=== PATIENT | male | born 1985 | race Hispanic/Latino ===

== ENCOUNTER 2016-10-25 21:33 | Emergency (ER) | payer BC ==
[2016-10-25 22:02] VITALS: TEMP 98.7; O2SAT 97
--- NOTE | 2016-10-25 22:03 | ED.PDOC ---
History of Present Illness - General Chief Complaint: Cardiovascular Problem Stated Complaint: chest discomfort Time Seen by Provider: 10/25/16 21:43 Source: patient, RN notes reviewed, Vital Signs reviewed Exam Limitations: no limitations - History of Present Illness Initial Comments: Patient presents to ER with c/o L upper chest pain for the past 3-4 days. It is a burning pain that causes tingling across his shoulder. The pain is causing him some anxiety and thus he came to get it checked out. No diaphoresis or nausea. + SOB but only when he starts to panic about the chest pain. He thinks the pain may be related to work. 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 Timing/Duration: days - 3-4 Severity/Quality: moderate, burning Location: other - L upper chest Chest Pain Radiation: shoulders - tingling across left shoulder Activities at Onset: activity - Work Prior Chest Pain/Cardiac Workup: no prior chest pain, no prior cardiac workup Improving Factors: rest Worsening Factors: movement Nitro Today/Relief: no nitro taken today Aspirin Treatment Today: no aspirin today Associated Symptoms: denies symptoms Allergies/Adverse Reactions: Allergies NO KNOWN ALLERGY Allergy (Verified 04/24/15 22:29) Home Medications: Ambulatory Orders Albuterol Inhaler [Proventil Hfa Inhaler] 2 puff INH Q4H #1 inh 04/24/15 Azithromycin [Zithromax Z-Gene] 1 ea PO DAILY #1 pack 04/24/15 predniSONE 60 mg PO DAILY #12 tab 04/24/15 Cyclobenzaprine HCl [Flexeril] 10 mg PO Q8HR PRN #15 tab 10/25/16 Review of Systems - Review of Systems Constitutional: States: no symptoms reported EENTM: States: no symptoms reported Respiratory: States: short of breath Cardiology: States: see HPI, chest pain Gastrointestinal/Abdominal: States: no symptoms reported Musculoskeletal: States: see HPI Skin: States: no symptoms reported Neurological: States: no symptoms reported All other Systems: No Change from Baseline Past Medical History (General) - Patient Medical History Hx Seizures: No Hx Stroke: No Hx Dementia: No Hx Asthma: No Hx of COPD: No Hx Cardiac Disorders: No Hx Congestive Heart Failure: No Hx Pacemaker: No Hx Hypertension: No Hx Thyroid Disease: No Hx Diabetes: Yes Hx Gastroesophageal Reflux: No Hx Renal Disease: No Hx Cancer: No Hx of HIV: No Hx Hepatitis C: No Hx MRSA: No - Vaccination History Hx Tetanus, Diphtheria Vaccination: No Hx Influenza Vaccination: No Hx Pneumococcal Vaccination: No - Social History Hx Tobacco Use: No Hx Chewing Tobacco Use: No Hx Alcohol Use: No Hx Substance Use: No Hx Substance Use Treatment: No Hx Depression: No Hx Physical Abuse: No Hx Emotional Abuse: No Hx Suspected Abuse: No Family Medical History - Family History Mother Family History: No Known Physical Exam - Physical Exam General Appearance: Alert, Anxious, Comfortable, No apparent distress, Well Developed, Well Groomed, Well Hydrated, Well Nourished Neck: full range of motion, supple, normal inspection Respiratory: lungs clear, normal breath sounds, no respiratory distress, no accessory muscle use, other - L upper pectoralis: + muscle spasm and tenderness , palpation causes tingling into shoulder and upper arm Cardiovascular/Chest: regular rate, rhythm, no edema, no gallop, no JVD, no murmur Extremity: normal range of motion, non-tender, normal inspection Neurologic: alert, normal mood/affect, oriented x 3 Skin Exam: normal color, warm/dry Progress - Progress Progress: 10/25/16 22:25 Discussed that symptoms and exam show he has muscle spasm in his L pectoralis muscles. Most likely caused by his work. 10/25/16 22:26 Will give Toradol and Flexeril - EKG/XRAY/CT EKG: Sinus, no ST T wave changes Comments: Rate 68 Departure - Departure Clinical Impression: Acute chest wall pain, Muscle spasm Time of Disposition: 22:27 Disposition: Discharge to Home or Self Care Condition: Good Departure Forms: ED Discharge - Pt. Copy, Patient Portal Self Enrollment, Work Release Form Instructions: DI for Atypical Chest Pain Diet: resume usual diet Activity: increase activity as tolerated Referrals: Cherry Leone NP [Primary Care Provider] - 1-2 Weeks Prescriptions: Cyclobenzaprine HCl [Flexeril] 10 mg PO Q8HR PRN #15 tab PRN Reason: Muscle Spasms Home Medications: Ambulatory Orders Albuterol Inhaler [Proventil Hfa Inhaler] 2 puff INH Q4H #1 inh 04/24/15 Azithromycin [Zithromax Z-Gene] 1 ea PO DAILY #1 pack 04/24/15 predniSONE 60 mg PO DAILY #12 tab 04/24/15 Cyclobenzaprine HCl [Flexeril] 10 mg PO Q8HR PRN #15 tab 10/25/16
[2016-10-25] MEDS ORDERED: CYCLOBENZAPRINE HCL 10 MG TAB PO ONE (22:15)
[2016-10-25] MEDS ORDERED: KETOROLAC TROMETHAMINE INJ 60 MG/2 ML VIAL IM ONE (22:15)
[2016-10-25 22:35] VITALS: BP 124/81
== END 2016-10-25 22:35 | disposition home or self-care (01) ==
LOC: ER 21:33
DX: R07.89 Other chest pain (principal); M62.838 Other muscle spasm; E11.9 Type 2 diabetes mellitus without complications; Z79.899 Other long term (current) drug therapy
CPT/HCPCS: 93005; J1885

== ENCOUNTER → 2017-10-08 | Outpatient (CLI) | payer BC | LOC: YCFC.O 09:37 | PROVIDERS: ATTEND Family Medicine | DX: E11.9 Type 2 diabetes mellitus without complications (principal); R53.83 Other fatigue ==

== ENCOUNTER → 2018-06-30 | Outpatient (CLI) | payer BC | LOC: YCFC.O 06-29 18:00 | PROVIDERS: ATTEND Family Medicine | DX: E11.9 Type 2 diabetes mellitus without complications (principal); E78.5 Hyperlipidemia, unspecified ==

== ENCOUNTER → 2019-09-21 | Outpatient (CLI) | payer BC | LOC: YCFC.O 11:49 | PROVIDERS: ATTEND Family Medicine | DX: E11.9 Type 2 diabetes mellitus without complications (principal) ==

== ENCOUNTER → 2019-11-27 | Outpatient (CLI) | payer OTHER | LOC: YCFC.O 12:27 | PROVIDERS: ATTEND Family Medicine | DX: E11.9 Type 2 diabetes mellitus without complications (principal) ==

== ENCOUNTER → 2020-02-14 | Outpatient (CLI) | payer OTHER | LOC: YCFC.O 09:21 | PROVIDERS: ATTEND Nurse Practitioner | DX: L02.91 Cutaneous abscess, unspecified (principal) ==